=== PATIENT | male | born 1975 | race Caucasian/White ===

== ENCOUNTER 2019-10-26 13:09 | Emergency (ER) | payer MEDICAID ==
[~2019-10-26] VITALS: Ht 180.3 cm; Wt 75.4 kg
[2019-10-26 13:31] VITALS: BP 121/73
[2019-10-26] MEDS ORDERED: ALBU0.63 NEB (13:55)
--- NOTE | 2019-10-26 14:29 | NUR ---
Patient/Caregiver given discharge instructions and they have confirmed that they understand the instructions. Patient ambulatory with steady gait. pt left with all personal belongings.
== END 2019-10-26 14:32 | disposition home or self-care (01) ==
LOC: ED 14:00
DX: K08.89 Other specified disorders of teeth and supporting structures (principal); F17.200 Nicotine dependence, unspecified, uncomplicated
CPT/HCPCS: 99283